=== PATIENT | male | born 1975 | race African-American/Black ===

== ENCOUNTER 2019-04-17 17:41 | Emergency (ER) | payer OTHER ==
[~2019-04-17] VITALS: Ht 190.5 cm; Wt 111.1 kg
[2019-04-17] MEDS ORDERED: CENTANY30 GM TOP (18:22)
[2019-04-17 18:45] VITALS: BP 143/85
== END 2019-04-17 18:47 | disposition home or self-care (01) ==
LOC: M.ERS 17:41
DX: T81.31XA Disruption of external operation (surgical) wound, not elsewhere classified, initial encounter (principal)

== ENCOUNTER 2021-07-31 12:54 | Emergency (ER) | payer OTHER ==
[~2021-07-31] VITALS: Ht 190.5 cm; Wt 108.9 kg
[~2021-07-31 12:54] MED LIST: CENTANY30 GM TOP
[2021-07-31 13:45] LABS: CALCIUM 9.4 mg/dL (8.5-10.1); CREATININE 1.5 mg/dL (0.6-1.3); POTASSIUM 4.2 mmol/L (3.5-5.1)
--- NOTE | 2021-07-31 13:46 | EKG ---
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: : 1975 Requested By: Lencho Brunson Order Number: [id number] MD: Stephen Medina Measurements Intervals [place] Rate: 83 P: 71 [place]: 153 QRS: 59 QRSD: 91 T: 0 QT: 356 QTc: 419 Interpretive Statements Sinus rhythm Left atrial enlargement Nonspecific T abnormalities, lateral leads Minimal ST elevation, anterolateral leads No previous ECG available for comparison Electronically Signed On 07-31-2021 13:46:46 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
[2021-07-31 13:56] LABS: ALBUMIN 4.4 g/dL (3.4-5.0); TOTAL BILIRUBIN 0.4 mg/dL (<0.1-1.0); TOTAL PROTEIN 8.2 g/dL (6.4-8.2)
[2021-07-31 14:54] LABS: ABSOLUTE BASOPHILS 0.1 thou/uL (0.0-0.2); ABSOLUTE LYMPHOCYTES 2.6 thou/uL (0.8-5.3); ABSOLUTE MONOCYTES 0.3 thou/uL (0.0-1.2); BASOPHILS 0.8 %; EOSINOPHILS 0.6 %; HEMATOCRIT 38.9 % (42.0-52.0); HEMOGLOBIN 12.5 gm/dL (14.0-18.0); LYMPHOCYTES 43.3 %; MCH 24.5 pg (26.0-34.0); MCV 76.6 fL (80.0-100.0); MONOCYTES 5.6 %; MPV 8.3 fl. (7.2-11.1); NUCLEATED RBCS 0 /100WBC; PLATELET COUNT* 299 thou/uL (150-400); POLYS 49.7 %; RBC 5.09 mil/uL (4.50-6.00); RDW-CV 14.3 % (10.5-14.5); WBC 6.1 thou/uL (4.0-11.0)
[2021-07-31] MEDS ORDERED: CIPRO500 M1 PO (15:34)
[2021-07-31] MEDS ORDERED: METRONIDAZOLE500 M4 PO (15:34)
[2021-07-31] MEDS ORDERED: PREDNISONE 20 M20 M1 PO (15:34)
[2021-07-31 16:05] VITALS: BP 136/59
== END 2021-07-31 16:05 | disposition home or self-care (01) ==
LOC: M.ERS 12:54
PROVIDERS: Physician Assistant Medical
DX: R10.31 Right lower quadrant pain (principal)